=== PATIENT | female | born 2000 | race Caucasian/White ===

== ENCOUNTER 2023-09-20 09:46 | Emergency (ER) | payer MEDICAID ==
[~2023-09-20] VITALS: Ht 165.1 cm; Wt 55.0 kg
[2023-09-20 09:49] VITALS: O2SAT 98
[2023-09-20 10:24] VITALS: TEMP 98.4
[2023-09-20] MEDS: ACETAMINOPHEN 325MG TABLET PO ONE (10:24)
[2023-09-20] MEDS ORDERED: TOPUD PO (11:36)
[2023-09-20 11:49] VITALS: BP 136/84; PULSE 100; RESP 16
[2023-09-21] MEDS ORDERED: IBUP-2029 MT (10:38)
[2023-09-21] MEDS ORDERED: ONDA4TAB11 PO (10:38)
== END 2023-09-20 11:50 | disposition home or self-care (01) ==
LOC: ER 09:46
DX: M25.561 Pain in right knee (principal); M25.512 Pain in left shoulder
CPT/HCPCS: 73030; 73560; 99284

== ENCOUNTER 2023-09-21 07:06 | Emergency (ER) | payer MEDICAID ==
[~2023-09-21] VITALS: Ht 162.6 cm; Wt 53.0 kg
[~2023-09-21 07:06] MED LIST: TOPUD PO
[2023-09-21 07:24] VITALS: O2SAT 100
[2023-09-21 07:45] LABS: BASOPHILS % 0.6 % (0.0-2.0); HEMATOCRIT. 41.9 % (36.0-48.0); HEMOGLOBIN. 14.1 g/dL (12.0-16.0); LYMPHOCYTES % 19.7 % (20.0-50.0); MEAN CORPUSCULAR HEMOGLOBIN 29.3 pg (28.0-32.0); MEAN CORPUSCULAR HGB CONC 33.7 g/dL (31.0-37.0); MEAN CORPUSCULAR VOLUME 86.9 fL (81.0-99.0); MEAN PLATELET VOLUME 8.6 fl (7.4-10.4); MONOCYTES % 8.5 % (2.0-8.0); NEUTROPHILS % 70.2 % (40.0-76.0); PLATELET 230 x1000/uL (130-400); RED BLOOD CELL COUNT 4.83 mill/uL (4.2-5.4); RED CELL DISTRIBUTION WIDTH 13.3 % (11.6-14.6); WHITE BLOOD COUNT 6.6 x1000/uL (4.5-11.0)
[2023-09-21 08:09] LABS: ALANINE AMINOTRANSFERASE 13 IU/L (10-49); ASPARTATE AMINOTRANSFERASE 19 IU/L (<34); BILIRUBIN TOTAL 0.4 mg/dL (0.1-1.0); CALCIUM 9.2 mg/dL (8.7-10.4); CARBON DIOXIDE 25 mEq/L (21-32); CHLORIDE 108 mEq/L (98-107); CREATININE 0.8 mg/dL (0.6-1.0); GLUCOSE 89 mg/dL (70-105); POTASSIUM 3.7 mEq/L (3.5-5.1); PROTEIN TOTAL 8.2 g/dL (6.0-8.3); SODIUM 141 mEq/L (136-145); UREA NITROGEN BLOOD 17 mg/dL (9-23)
[2023-09-21 08:37] LABS: CLARITY URINE CLOUDY (CLEAR); COLOR URINE YELLOW (YELLOW); GLUCOSE URINE NEGATIVE (NEGATIVE); KETONES URINE NEGATIVE (NEGATIVE); LEUKOCYTE ESTERASE URINE TRACE (NEGATIVE); NITRITE URINE NEGATIVE (NEGATIVE); OCCULT BLOOD URINE 2+ (NEGATIVE); PH URINE 5.5 (4.5-8.0); PROTEIN URINE TRACE (NEGATIVE); SPECIFIC GRAVITY URINE 1.013 (1.005-1.030); UROBILINOGEN URINE 0.2 E.U./dL (0.2-1.0)
[2023-09-21 08:55] LABS: RBC URINE 0-2 /hpf (0-2)
[2023-09-21 08:56] LABS: SQUAMOUS EPITHELIAL CELL URINE 1+ /lpf (RARE/1+)
[2023-09-21 08:58] LABS: MUCUS URINE TRACE /lpf (< = 2+)
[2023-09-21 09:01] LABS: BACTERIA URINE 3+
[2023-09-21] MEDS: IBUPROFEN 600MG TABLET PO NR (09:39)
[2023-09-21] MEDS: TRAMADOL 50MG TABLET PO NR (09:39)
[2023-09-21] MEDS ORDERED: IBUP-2029 MT (10:38)
[2023-09-21] MEDS ORDERED: ONDA4TAB11 PO (10:38)
[2023-09-21 10:51] VITALS: BP 132/85; PULSE 92; RESP 18; TEMP 98.5
== END 2023-09-21 10:55 | disposition home or self-care (01) ==
LOC: ER 07:06
DX: S06.0X0A Concussion without loss of consciousness, initial encounter (principal); S40.012A Contusion of left shoulder, initial encounter; S80.01XA Contusion of right knee, initial encounter; V23.49XA Other motorcycle driver injured in collision with car, pick-up truck or van in traffic accident, initial encounter; Y93.89 Activity, other specified; Y92.89 Other specified places as the place of occurrence of the external cause; Y99.8 Other external cause status
CPT/HCPCS: 36415; 80053; 81003; 81025; 85025; 99284